=== PATIENT | female | born 1945 | race Caucasian/White ===

== ENCOUNTER 2023-08-12 10:47 | Emergency (ER) | payer MEDICARE, OTHER ==
--- NOTE | 2023-08-12 10:51 | ERPHSYRPT ---
- History of Present Illness Time Seen by Provider: 08/12/23 10:51 Source: patient Exam Limitations: no limitations Physician History: This is a 77-year-old white female patient of Dr. Gonzales who presents with worsening left knee pain after a fall that occurred prior to arrival. Patient was letting her dogs out to use the restroom and a tripped her. She fell onto her knee first and mildly onto her abdomen. Patient has known abdominal aortic aneurysm repair. She has no complaints of any abdominal pain. However, despite having chronic left knee issues, the pain she feels after her fall this morning was worse. Plain Tylenol did not help relieve her pain. Patient was brought into the emergency department by her son. Patient has no chest pain. Patient did not hit her head. She has no headache. She has no neck pain. Patient has a history of hypertension, hypothyroidism, hyperlipidemia, COPD and anxiety Occurred: just prior to arrival Reason for Fall: lost balance Injuries/Pain Location: lower extremity Loss of Consciousness: no loss of consciousness (Left anterior knee) Quality: aching Severity of Pain-Max: mild (To moderate) Severity of Pain-Current: mild (To moderate) Modifying Factors: Improves With: movement Associated Symptoms (Fall): denies symptoms Allergies/Adverse Reactions: prednisone Allergy (Verified 08/12/23 10:56) Swelling of Face Home Medications: ALPRAZolam 1 MG [Xanax 1 mg] 1 mg PO BID 08/12/23 [History] Albuterol Sulfate [Albuterol Sulfate Hfa] 2 puff IH QID 08/12/23 [History] Amlodipine Besylate 5 mg [Norvasc 5 mg] 5 mg PO DAILY 08/12/23 [History] Enalapril Maleate 20 mg PO DAILY 08/12/23 [History] Fluticasone/Umeclidin/Vilanter [Trelegy Ellipta 100-62.5-25] 1 puff PO DAILY 08/12/23 [History] Levothyroxine Sodium 2 tab PO DAILY 08/12/23 [History] Metoprolol Tartrate 50 mg [Lopressor 50 MG] 1 tab PO BID 08/12/23 [History] Rosuvastatin Calcium 20 mg PO HS 08/12/23 [History] Travel Risk - International Travel Have you traveled outside of the country in past 3 weeks: No - Coronavirus Screening Are you exhibiting any of the following symptoms?: No Close contact with a COVID-19 positive Pt in past 14-21 Days: No - Review of Systems Constitutional: No Symptoms Eyes: No Symptoms Ears, Nose, & Throat: No Symptoms Respiratory: No Symptoms Cardiac: No Symptoms Abdominal/Gastrointestinal: No Symptoms Genitourinary Symptoms: No Symptoms Musculoskeletal: Injury (Left anterior knee) Skin: No Symptoms Neurological: No Symptoms Psychological: No Symptoms Endocrine: No Symptoms Hematologic/Lymphatic: No Symptoms Immunological/Allergic: No Symptoms All Other Systems: Reviewed and Negative - Past Medical History Neurological History: No Pertinent History Cardiac History: High Cholesterol, Hypertension, Other Respiratory History: COPD, Pneumonia, Sleep Apnea, Other Endocrine Medical History: Hypothyroidism Other Medical History: chest pain, L wrist fracture, SOB, AAA repair (09/14/19), cataract B removal (08/24/11), tonsillectomy, 09/27/20, sleeps with 2.0L O2 via nasal cannula - Nursing Vital Signs Nursing Vital Signs: Initial Vital Signs Temperature 97.9 F 08/12/23 10:53 Pulse Rate 82 08/12/23 10:53 Respiratory Rate 17 08/12/23 10:53 Blood Pressure 186/95 08/12/23 10:53 O2 Sat by Pulse Oximetry 96 08/12/23 10:53 Pain Scale Pain Intensity 9 - Walker Coma Score Best Eye Response (Walker): (4) open spontaneously Best Verbal Response (Walker): (5) oriented Best Motor Response (Dayami): (6) obeys commands [place] Total: 15 - Physical Exam General Appearance: no apparent distress, alert, anxiety Head Injury: no evidence of injury Eye Exam: PERRL/EOMI, eyes nml inspection ENT Exam: airway nml, nml ext.inspection, No evidence of ENT injury Neck Exam: supple, trachea midline, full range of motion, normal inspection Respiratory/Chest Exam: No chest tenderness, No respiratory distress Gastrointestinal Exam: No tenderness Rectal Exam: not done Back Exam: normal inspection, normal range of motion, No CVA tenderness, No vertebral tenderness Extremity Exam: normal inspection, normal range of motion, capillary refill <3 sec, pelvis stable, tenderness (Anterior left knee) Neurologic Exam: alert, oriented x 3, cooperative, investigation clerk II-XII nml as tested, normal mood/affect, sensation nml Skin Exam: normal color, warm, dry SpO2 Interpretation: normal O2 Delivery: Room Air - Course Nursing assessment & vital signs reviewed: Yes Ordered Tests: Active Orders 24 hr Category Date Time Status KNEE (3 VIEWS) Stat Exams 08/12/23 11:15 Completed Medication Summary Discontinued Medications Generic Name Dose Route Start Last Admin Trade Name Be PRN Reason Stop Dose Admin Oxycodone/Acetaminophen 1 tab 08/12/23 11:16 08/12/23 11:20 Oxycodone Hcl/Apap 5 Mg/325 Mg Tablet PO 08/12/23 11:17 1 tab STAT STA Administration Oxycodone/Acetaminophen Confirm 08/12/23 11:18 Oxycodone Hcl/Apap 5 Mg/325 Mg Tablet Administered 08/12/23 11:19 Dose 1 tab .ROUTE .STK-MED ONE - Progress Progress: improved, pain not gone completely Progress Note: 08/12/23 11:22 This patient's medical issue is 1 of low complexity. The level complex in the workup performed is based on review of the patient's past medical history, review the patient's medication list, review of the patient's drug allergy list, history present illness and physical exam findings. Workup in this patient includes x-ray of the left knee. In addition, we will provide a Percocet 5/325 orally. 08/12/23 11:42 I interpreted the x-ray of the left knee. There is no evidence of any acute fracture or dislocation. There are chronic changes noted. Final reading from the radiologist states the same. Counseled pt/family regarding: diagnosis, need for follow-up, rad results Medical Desision Making - Diagnostic Testing Diagnostic test were ordered, analyzed, and reviewed by me: Yes Radiological Interpretation: Reviewed by me, Teleradiologist Report - Risk of complications The pt has a mod risk of morbidity or mortality based on: Need for prescription drug management - Departure Departure Disposition: Home Clinical Impression: Left anterior knee pain Condition: Stable Critical Care Time: No Referrals: NEELA GONZALES MD [Primary Care Provider] - Follow up/PCP as directed Additional Instructions: Ice pack to the area 3 times a day for 48 hours. Call your primary care provider for further evaluation and management including referral to an orthopedic surgeon regarding your chronic left knee pain. Prescriptions: Oxycodone HCl/Acetaminophen [Percocet 5-325 mg Tablet] 1 each PO Q8H PRN PRN #6 tablet MDD 3 PRN Reason: Moderate To Severe Pain
[2023-08-12 11:09] VITALS: RESP 17; TEMP 97.9; O2SAT 96
[2023-08-12] MEDS ORDERED: PERCOCET TABLET 5/325MG PO STA (11:16)
[2023-08-12] MEDS ORDERED: PERCOCET TABLET 5/325MG ONE (11:18)
--- NOTE | 2023-08-12 11:35 | XRAY ---
Indication: Pain following fall. Comparison: None 3 portable views left knee demonstrates osteopenia, mild/moderate tricompartmental degenerative changes greatest medial compartment, and scattered vascular calcifications. No other bony, articular, or soft tissue abnormalities.
[2023-08-12 12:11] VITALS: BP 146/81; PULSE 80
== END 2023-08-12 12:17 | disposition home or self-care (01) ==
LOC: ED 10:47
DX: M25.562 Pain in left knee (principal); I10 Essential (primary) hypertension; E78.5 Hyperlipidemia, unspecified; Z79.891 Long term (current) use of opiate analgesic; Z79.899 Other long term (current) drug therapy
CPT/HCPCS: 73562; 99283; A9270-GY